=== PATIENT | female | born 1955 | race Caucasian/White ===

== ENCOUNTER 2018-07-22 16:23 | Emergency (ER) | payer OTHER ==
[~2018-07-22] VITALS: Ht 147.3 cm; Wt 72.6 kg
[2018-07-22 18:33] VITALS: BP 154/73
== END 2018-07-22 18:59 | disposition home or self-care (01) ==
LOC: ER 16:28
DX: S02.2XXA Fracture of nasal bones, initial encounter for closed fracture (principal); Z88.1 Allergy status to other antibiotic agents; W22.8XXA Striking against or struck by other objects, initial encounter; Y93.89 Activity, other specified; Y99.8 Other external cause status; Y92.89 Other specified places as the place of occurrence of the external cause
CPT/HCPCS: 70486

== ENCOUNTER 2021-05-25 09:51 | Emergency (ER) | payer BC, OTHER ==
[~2021-05-25] VITALS: Ht 147.3 cm; Wt 56.7 kg
[2021-05-25 10:05] VITALS: BP 187/79
[2021-05-25] MEDS ORDERED: LEVO88TA4 PO (10:13)
[2021-05-25] MEDS ORDERED: ZAFI1TAB3 PO (10:13)
[2021-05-25] MEDS ORDERED: CHOL20007 OR (10:13)
[2021-05-25] MEDS ORDERED: ALBUAER3 IN (10:13)
[2021-05-25] MEDS ORDERED: ASPI1TAB20 PO (10:13)
[2021-05-25] MEDS ORDERED: LOSA-69 PO (10:13)
[2021-05-25] MEDS ORDERED: ROSU10TA16 PO (10:13)
[2021-05-25] MEDS ORDERED: [UNRECOGNIZED DRUG - CODE] PO (10:13)
[2021-05-25] MEDS ORDERED: VERA1TAB24 PO (10:13)
== END 2021-05-25 12:14 | disposition home or self-care (01) ==
LOC: ER 09:51
DX: M79.672 Pain in left foot (principal); J44.9 Chronic obstructive pulmonary disease, unspecified; E78.5 Hyperlipidemia, unspecified; I10 Essential (primary) hypertension; Z90.710 Acquired absence of both cervix and uterus; Z79.899 Other long term (current) drug therapy; Z88.8 Allergy status to other drugs, medicaments and biological substances; Z87.891 Personal history of nicotine dependence
CPT/HCPCS: 73620; 93971